=== PATIENT | male | born 1980 | race Caucasian/White ===

== ENCOUNTER 2022-09-01 05:00 | Emergency (ER) | payer BC ==
[2022-09-01] MEDS ORDERED: Famotidine 20 MG/2 ML SDV IVPUSH ONE (05:57)
[2022-09-01] MEDS ORDERED: Sodium Chloride 0.9% 10 ML Syringe FLUSH PRN (05:57)
[2022-09-01] MEDS ORDERED: methylPREDNISolone Sodium Succinate 125 MG/2 ML SDV IVPUSH ONE (05:58)
[2022-09-01] MEDS ORDERED: diphenhydrAMINE 50 MG/ML SDV IVPUSH ONE (05:58)
[2022-09-01 07:48] VITALS: BP 160/94; PULSE 94
== END 2022-09-01 07:49 | disposition home or self-care (01) ==
LOC: JD.ED 05:00
DX: T78.3XXA Angioneurotic edema, initial encounter (principal); I10 Essential (primary) hypertension; E66.9 Obesity, unspecified; Z68.41 Body mass index [BMI] 40.0-44.9, adult; Z87.891 Personal history of nicotine dependence; Z88.1 Allergy status to other antibiotic agents; Z79.899 Other long term (current) drug therapy
CPT/HCPCS: 96374; 96375; 99284; J1200; J2930; J3490; 99283

== ENCOUNTER 2022-12-15 09:54 | Inpatient (IN) | payer BC ==
[2022-12-15] MEDS ORDERED: Sodium Chloride 0.9% 10 ML Syringe FLUSH PRN (10:39)
[2022-12-15] MEDS ORDERED: Sodium Chloride 0.9% 1,000 ML IV ONE ×3 (10:42→18:41)
[2022-12-15 10:50] LABS: BASOPHILS ABSOLUTE AUTO 0.01 K/mm3 (0.01-0.08); BASOPHILS PERCENT AUTO 0.1 % (0.1-1.2); EOSINOPHILS ABSOLUTE AUTO 0.08 K/mm3 (0.04-0.54); EOSINOPHILS PERCENT AUTO 0.6 (0.8-7.0); HEMATOCRIT 45.8 % (40.1-51.0); HEMOGLOBIN 15.9 gm/dl (13.7-17.5); IMMATURE GRAN ABSOLUTE AUTO 0.06 K/mm3 (0.00-0.10); IMMATURE GRAN PERCENT AUTO 0.4 % (<=1.0); LYMPHOCYTES ABSOLUTE AUTO 0.71 K/mm3 (1.32-3.57); LYMPHOCYTES PERCENT AUTO 5.1 % (21.8-53.1); MEAN CORPUSCULAR HEMOGLOBIN 29.9 pg (25.7-32.2); MEAN CORPUSCULAR HGB CONC 34.7 g/dl (32.2-35.5); MEAN CORPUSCULAR VOLUME 86.1 fl (79.0-92.2); MONOCYTES ABSOLUTE AUTO 0.85 K/mm3 (0.30-0.82); MONOCYTES PERCENT AUTO 6.1 % (5.3-12.2); NEUTROPHILS ABSOLUTE AUTO 12.12 K/mm3 (1.78-5.38); NEUTROPHILS PERCENT AUTO 87.7 % (34.0-67.9); PLATELET COUNT,PLT 141 K/mm3 (163-337); RED BLOOD CELL COUNT 5.32 M/mm3 (4.63-6.08); WHITE BLOOD CELL COUNT,WBC 13.83 K/mm3 (4.23-9.07)
[2022-12-15 11:07] LABS: INR 0.95; PROTHROMBIN TIME 10.2 SECONDS (9.7-12.0)
[2022-12-15 11:09] LABS: PTT,PARTIAL THROMBOPLSTIN TIME 23.9 SECONDS (21.7-31.4)
[2022-12-15 11:11] LABS: LACTIC ACID 3.2 mmol/L (0.4-2.0)
[2022-12-15 11:12] LABS: D-DIMER QUANTITATIVE 1.29 mg/L (0.19-0.50)
[2022-12-15 11:16] LABS: A/G RATIO 1.1 (1-2); ALBUMIN 3.8 g/dl (3.4-5.0); ANION GAP 12.8 (5-15); BILIRUBIN TOTAL 0.8 mg/dL (0.2-1.0); CALCIUM 8.9 mg/dL (8.5-10.1); EST CRCL DRUG DOSING (CG) 107.78 mL/min; MAGNESIUM 1.4 mg/dL (1.8-2.4); POTASSIUM,K 3.8 mEq/L (3.5-5.1); PROTEIN TOTAL,TP 7.4 g/dl (6.4-8.2)
[2022-12-15] MEDS ORDERED: Morphine 2 MG/ML SYRINGE IVPUSH ONE (12:10)
[2022-12-15] MEDS ORDERED: HYDROmorphone 1 MG/ML Syringe IVPUSH ONE (12:41)
[2022-12-15] MEDS: Piperacillin/Tazobactam 4.5 GM in Sodium Chloride 0.9% 100 ML IV SCH ×2 (12:47→21:33)
[2022-12-15] MEDS ORDERED: Linezolid 600 MG in Premix Bag 1 BAG IV ONE (13:56)
[2022-12-15] MEDS ORDERED: LORazepam 2 MG/ML SDV IVPUSH ONE (15:37)
[2022-12-15] MEDS ORDERED: Ibuprofen 800 MG Tab PO ONE (15:44)
[2022-12-15] MEDS ORDERED: Ondansetron 4 MG Tab.DIS PO PRN (16:14)
[2022-12-15] MEDS ORDERED: Albuterol/Ipratropium 3.0-0.5 MG/3 ML Neb Soln NEB PRN (16:14)
[2022-12-15] MEDS ORDERED: Ondansetron 4 MG/2 ML SDV IV PRN (16:14)
[2022-12-15] MEDS ORDERED: Magnesium Sulfate/Water 2 GM/50 ML BAG IV ONE (16:14)
[2022-12-15] MEDS ORDERED: Docusate Sodium 100 MG Cap PO PRN (16:14)
[2022-12-15] MEDS ORDERED: Polyethylene Glycol 3350 Powder 17 GM Packet PO PRN (16:14)
[2022-12-15] MEDS: oxyCODONE 5 MG Tab PO PRN ×2 (16:56→21:33)
[2022-12-15] MEDS: cefTRIAXone 1 GM in Sodium Chloride 0.9% 100 ML IV SCH (16:57)
[2022-12-15] MEDS: Sodium Chloride 0.9% 1,000 ML IV SCH (17:54)
[2022-12-15 18:36] LABS: LACTIC ACID 2.3 mmol/L (0.4-2.0)
[2022-12-15] MEDS: Acetaminophen 325 MG Tab PO PRN (19:45)
[2022-12-15] MEDS ORDERED: Famotidine 20 MG Tab PO SCH (21:00)
[2022-12-15] MEDS: Heparin Sodium 5,000 Units/ML Vial SUBCUT SCH (21:33)
[2022-12-15] MEDS ORDERED: oxyCODONE 5 MG Tab PO ONE (23:05)
[2022-12-15 23:55] LABS: APPEARANCE,URINE CLEAR (Clear); BILIRUBIN,URINE NEGATIVE (Negative); COLOR,URINE YELLOW (Yellow); GLUCOSE,URINE NEGATIVE (Negative); KETONES,URINE TRACE (Negative); LEUKOCYTE ESTERASE,URINE NEGATIVE (Negative); NITRITE,URINE NEGATIVE (Negative); OCCULT BLOOD,URINE NEGATIVE (Negative); PROTEIN,URINE TRACE (Negative); UROBILINOGEN,URINE 0.2 (0.2-1.0)
[2022-12-16 00:09] LABS: BACTERIA,URINE FEW /hpf (FEW); EPITHELIAL CELLS,URINE 0-5 /hpf (0-5); MUCUS,URINE MODERATE /hpf (FEW); RBC,URINE 0-5 /hpf (0-5); WBC,URINE 0-5 /hpf (0-5)
[2022-12-16] MEDS: Sodium Chloride 0.9% 1,000 ML IV SCH ×4 (01:46→23:01)
[2022-12-16] MEDS: Linezolid 600 MG in Premix Bag 1 BAG IV SCH ×2 (01:47→20:06)
[2022-12-16] MEDS: Piperacillin/Tazobactam 4.5 GM in Sodium Chloride 0.9% 100 ML IV SCH ×3 (04:35→23:01)
[2022-12-16] MEDS: Heparin Sodium 5,000 Units/ML Vial SUBCUT SCH ×3 (05:12→23:01)
[2022-12-16 05:54] LABS: ANION GAP 13.2 (5-15); CALCIUM 7.8 mg/dL (8.5-10.1); EST CRCL DRUG DOSING (CG) 107.78 mL/min; MAGNESIUM 1.6 mg/dL (1.8-2.4); PHOSPHORUS 3.2 mg/dL (2.6-4.7); POTASSIUM,K 4.2 mEq/L (3.5-5.1)
[2022-12-16 05:56] LABS: BASOPHILS ABSOLUTE AUTO 0.01 K/mm3 (0.01-0.08); BASOPHILS PERCENT AUTO 0.1 % (0.1-1.2); EOSINOPHILS ABSOLUTE AUTO 0.02 K/mm3 (0.04-0.54); EOSINOPHILS PERCENT AUTO 0.1 (0.8-7.0); HEMATOCRIT 38.9 % (40.1-51.0); IMMATURE GRAN ABSOLUTE AUTO 0.05 K/mm3 (0.00-0.10); IMMATURE GRAN PERCENT AUTO 0.3 % (<=1.0); LYMPHOCYTES ABSOLUTE AUTO 1.01 K/mm3 (1.32-3.57); LYMPHOCYTES PERCENT AUTO 6.9 % (21.8-53.1); MEAN CORPUSCULAR HEMOGLOBIN 29.7 pg (25.7-32.2); MEAN CORPUSCULAR HGB CONC 33.9 g/dl (32.2-35.5); MEAN CORPUSCULAR VOLUME 87.6 fl (79.0-92.2); MEAN PLATELET VOLUME 9.4 fl (9.4-12.3); MONOCYTES ABSOLUTE AUTO 0.57 K/mm3 (0.30-0.82); MONOCYTES PERCENT AUTO 3.9 % (5.3-12.2); NEUTROPHILS ABSOLUTE AUTO 12.95 K/mm3 (1.78-5.38); NEUTROPHILS PERCENT AUTO 88.7 % (34.0-67.9); PLATELET COUNT,PLT 125 K/mm3 (163-337); RED BLOOD CELL COUNT 4.44 M/mm3 (4.63-6.08); WHITE BLOOD CELL COUNT,WBC 14.61 K/mm3 (4.23-9.07)
[2022-12-16 06:05] LABS: HEMOGLOBIN 13.2 gm/dl (13.7-17.5)
[2022-12-16] MEDS: Acetaminophen 325 MG Tab PO PRN ×4 (06:43→21:13)
[2022-12-16] MEDS: oxyCODONE 5 MG Tab PO PRN ×3 (07:39→21:14)
[2022-12-16] MEDS ORDERED: Losartan 50 MG Tab PO SCH (09:00)
[2022-12-16] MEDS: FLUoxetine 20 MG Cap PO SCH (09:30)
[2022-12-16] MEDS: buPROPion 150 MG Tab.SR PO SCH (09:31)
[2022-12-16] MEDS: Hydrochlorothiazide 12.5 MG Cap PO SCH (09:31)
[2022-12-16] MEDS: amLODIPine 10 MG Tab PO SCH (09:32)
[2022-12-16] MEDS ORDERED: Magnesium Sulfate/Water 2 GM in Premix Bag 1 BAG IV ONE (13:00)
[2022-12-16] MEDS ORDERED: Magnesium Sulfate (4.06 MEQ/ML) 5 GM/10 ML SDV IV ONE (13:00)
[2022-12-16] MEDS: cefTRIAXone 1 GM in Sodium Chloride 0.9% 100 ML IV SCH (21:30)
[2022-12-17] MEDS: Acetaminophen 325 MG Tab PO PRN ×4 (03:50→21:53)
[2022-12-17] MEDS: oxyCODONE 5 MG Tab PO PRN ×4 (03:51→21:54)
[2022-12-17] MEDS: Piperacillin/Tazobactam 4.5 GM in Sodium Chloride 0.9% 100 ML IV SCH ×3 (03:52→21:51)
[2022-12-17 05:52] LABS: ANION GAP 12.8 (5-15); CALCIUM 8.3 mg/dL (8.5-10.1); EST CRCL DRUG DOSING (CG) 107.78 mL/min; MAGNESIUM 1.8 mg/dL (1.8-2.4); POTASSIUM,K 3.8 mEq/L (3.5-5.1)
[2022-12-17 05:58] LABS: BASOPHILS ABSOLUTE AUTO 0.01 K/mm3 (0.01-0.08); BASOPHILS PERCENT AUTO 0.1 % (0.1-1.2); EOSINOPHILS ABSOLUTE AUTO 0.06 K/mm3 (0.04-0.54); EOSINOPHILS PERCENT AUTO 0.4 (0.8-7.0); HEMATOCRIT 36.1 % (40.1-51.0); HEMOGLOBIN 12.2 gm/dl (13.7-17.5); IMMATURE GRAN ABSOLUTE AUTO 0.03 K/mm3 (0.00-0.10); IMMATURE GRAN PERCENT AUTO 0.2 % (<=1.0); LYMPHOCYTES ABSOLUTE AUTO 1.29 K/mm3 (1.32-3.57); LYMPHOCYTES PERCENT AUTO 9.3 % (21.8-53.1); MEAN CORPUSCULAR HEMOGLOBIN 29.9 pg (25.7-32.2); MEAN CORPUSCULAR HGB CONC 33.8 g/dl (32.2-35.5); MEAN CORPUSCULAR VOLUME 88.5 fl (79.0-92.2); MEAN PLATELET VOLUME 9.5 fl (9.4-12.3); MONOCYTES ABSOLUTE AUTO 0.78 K/mm3 (0.30-0.82); MONOCYTES PERCENT AUTO 5.6 % (5.3-12.2); NEUTROPHILS ABSOLUTE AUTO 11.73 K/mm3 (1.78-5.38); NEUTROPHILS PERCENT AUTO 84.4 % (34.0-67.9); PLATELET COUNT,PLT 133 K/mm3 (163-337); RED BLOOD CELL COUNT 4.08 M/mm3 (4.63-6.08)
[2022-12-17] MEDS: Sodium Chloride 0.9% 1,000 ML IV SCH ×3 (06:14→21:51)
[2022-12-17] MEDS: Heparin Sodium 5,000 Units/ML Vial SUBCUT SCH ×3 (06:14→21:56)
[2022-12-17] MEDS: Hydrochlorothiazide 12.5 MG Cap PO SCH (08:44)
[2022-12-17] MEDS: FLUoxetine 20 MG Cap PO SCH (08:44)
[2022-12-17] MEDS: buPROPion 150 MG Tab.SR PO SCH (08:44)
[2022-12-17] MEDS: amLODIPine 10 MG Tab PO SCH (08:44)
[2022-12-17] MEDS: Linezolid 600 MG in Premix Bag 1 BAG IV SCH ×2 (08:45→20:38)
[2022-12-17] MEDS ORDERED: Iopamidol 612 MG/ML 100 ML Bottle IVPUSH ONE (15:10)
[2022-12-17] MEDS: Iopamidol 612 MG/ML 100 ML Bottle IVPUSH ONE ×2 (15:11)
[2022-12-17 15:53] LABS: APPEARANCE,URINE CLEAR (Clear); BILIRUBIN,URINE NEGATIVE (Negative); COLOR,URINE LIGHT YELLOW (Yellow); GLUCOSE,URINE NEGATIVE (Negative); KETONES,URINE NEGATIVE (Negative); LEUKOCYTE ESTERASE,URINE NEGATIVE (Negative); NITRITE,URINE NEGATIVE (Negative); OCCULT BLOOD,URINE TRACE-INTACT (Negative); PROTEIN,URINE TRACE (Negative); UROBILINOGEN,URINE 0.2 (0.2-1.0)
[2022-12-17 16:07] LABS: BACTERIA,URINE RARE /hpf (FEW); MUCUS,URINE NOT SEEN /hpf (FEW); SQUAMOUS EPITHELIAL CELLS,UR 0-5 /hpf (0-5); WBC,URINE 0-5 /hpf (0-5)
[2022-12-17 16:08] LABS: AMORPHOUS SEDIMENT,URINE FEW /hpf (NOT SEEN)
[2022-12-18] MEDS: Heparin Sodium 5,000 Units/ML Vial SUBCUT SCH ×2 (05:45→12:59)
[2022-12-18] MEDS: Piperacillin/Tazobactam 4.5 GM in Sodium Chloride 0.9% 100 ML IV SCH ×2 (05:45→12:46)
[2022-12-18 05:57] LABS: BASOPHILS ABSOLUTE AUTO 0.01 K/mm3 (0.01-0.08); BASOPHILS PERCENT AUTO 0.1 % (0.1-1.2); EOSINOPHILS ABSOLUTE AUTO 0.11 K/mm3 (0.04-0.54); EOSINOPHILS PERCENT AUTO 0.9 (0.8-7.0); HEMATOCRIT 35.7 % (40.1-51.0); IMMATURE GRAN ABSOLUTE AUTO 0.04 K/mm3 (0.00-0.10); IMMATURE GRAN PERCENT AUTO 0.3 % (<=1.0); LYMPHOCYTES ABSOLUTE AUTO 1.51 K/mm3 (1.32-3.57); LYMPHOCYTES PERCENT AUTO 12.3 % (21.8-53.1); MEAN CORPUSCULAR HEMOGLOBIN 29.7 pg (25.7-32.2); MEAN CORPUSCULAR HGB CONC 33.6 g/dl (32.2-35.5); MEAN CORPUSCULAR VOLUME 88.4 fl (79.0-92.2); MEAN PLATELET VOLUME 9.6 fl (9.4-12.3); MONOCYTES ABSOLUTE AUTO 1.22 K/mm3 (0.30-0.82); NEUTROPHILS ABSOLUTE AUTO 9.36 K/mm3 (1.78-5.38); NEUTROPHILS PERCENT AUTO 76.4 % (34.0-67.9); PLATELET COUNT,PLT 149 K/mm3 (163-337); RED BLOOD CELL COUNT 4.04 M/mm3 (4.63-6.08); WHITE BLOOD CELL COUNT,WBC 12.25 K/mm3 (4.23-9.07)
[2022-12-18 06:00] LABS: ANION GAP 10.9 (5-15); BUN/CREATININE RATIO 6.7 (14-18); CALCIUM 8.7 mg/dL (8.5-10.1); CREATININE 0.9 mg/dL (0.7-1.3); EST CRCL DRUG DOSING (CG) 119.75 mL/min; POTASSIUM,K 3.9 mEq/L (3.5-5.1)
[2022-12-18] MEDS: Sodium Chloride 0.9% 1,000 ML IV SCH (07:59)
[2022-12-18] MEDS: Hydrochlorothiazide 12.5 MG Cap PO SCH (08:01)
[2022-12-18] MEDS: FLUoxetine 20 MG Cap PO SCH (08:02)
[2022-12-18] MEDS: oxyCODONE 5 MG Tab PO PRN ×2 (08:02→14:54)
[2022-12-18] MEDS: Acetaminophen 325 MG Tab PO PRN ×2 (08:02→12:56)
[2022-12-18] MEDS: amLODIPine 10 MG Tab PO SCH (08:02)
[2022-12-18] MEDS: buPROPion 150 MG Tab.SR PO SCH (08:02)
[2022-12-18] MEDS: Linezolid 600 MG in Premix Bag 1 BAG IV SCH (08:05)
[2022-12-18] MEDS ORDERED: Pantoprazole 40 MG Tab.CR PO PRN (11:36)
[2022-12-18 14:35] VITALS: BP 148/63; PULSE 83
[2022-12-19] MEDS ORDERED: buPROPion 150 MG Tab.ER PO SCH (09:00)
== END 2022-12-18 15:10 | DRG 720 ==
LOC: JD.ED 09:54 → JD.MS 15:12
PROVIDERS: ADMIT Hospitalist; ATTEND Hospitalist
DX: A41.9 Sepsis, unspecified organism (principal); J18.9 Pneumonia, unspecified organism; Z68.41 Body mass index [BMI] 40.0-44.9, adult; L03.115 Cellulitis of right lower limb; I10 Essential (primary) hypertension; E66.01 Morbid (severe) obesity due to excess calories; F32.A Depression, unspecified; K21.9 Gastro-esophageal reflux disease without esophagitis; E87.20 Acidosis, unspecified; E83.42 Hypomagnesemia; H54.7 Unspecified visual loss; G47.33 Obstructive sleep apnea (adult) (pediatric)
CPT/HCPCS: 36415; 71045; 71045-26; 73701-26-LT; 73701-LT; 80048; 80053; 81001; 82550; 83605; 83735; 84100; 84484; 85025; 85379; 85610; 85730; 87040; 93005; 93010; 93971-26-LT; 93971-LT; 94660; 94760; 94761; 96361; 96365; 96375; 99222; 99232; 99239; 99285; 99285-25; A9270-GY; J0696; J1170; J1644; J2020; J2060; J2270; J2405; J2543; J3475; J3490; J7030; Q9967

== ENCOUNTER 2023-10-01 15:07 | Emergency (ER) | payer BC ==
[2023-10-01 15:58] LABS: BASOPHILS PERCENT AUTO 0.4 % (0.0-1.0); EOSINOPHILS ABSOLUTE AUTO 0.2 K/mm3 (0.0-0.4); EOSINOPHILS PERCENT AUTO 2.3 % (0.0-6.0); HEMATOCRIT 42.8 % (42.0-52.0); IMMATURE GRAN ABSOLUTE AUTO 0.02 K/mm3 (0.00-0.05); IMMATURE GRAN PERCENT AUTO 0.3 % (0.0-0.4); LYMPHOCYTES ABSOLUTE AUTO 2.4 K/mm3 (1.0-4.8); LYMPHOCYTES PERCENT AUTO 33.3 % (24.0-44.0); MEAN CORPUSCULAR HEMOGLOBIN 30.2 pg (28.0-32.0); MEAN CORPUSCULAR VOLUME 86.3 fl (83.0-99.0); MONOCYTES ABSOLUTE AUTO 0.8 K/mm3 (0.0-0.8); MONOCYTES PERCENT AUTO 10.8 % (0.0-8.0); NEUTROPHILS ABSOLUTE AUTO 3.9 K/mm3 (1.8-7.7); NEUTROPHILS PERCENT AUTO 52.9 % (41.0-71.0); PLATELET COUNT,PLT 154 K/mm3 (150-400); RED BLOOD CELL COUNT 4.96 M/mm3 (4.52-5.90)
[2023-10-01] MEDS: Alum Hydrox/Mag Hydrox/Simeth 30 ML, Lidocaine 2% 15 ML PO ONE (16:10)
[2023-10-01 16:16] LABS: MAGNESIUM 1.9 mg/dL (1.8-2.4)
[2023-10-01 16:24] LABS: A/G RATIO 1.1 (1-2); ALBUMIN 3.8 g/dl (3.4-5.0); ANION GAP 16.2 (5-15); BILIRUBIN TOTAL 0.4 mg/dL (0.2-1.0); CALCIUM 8.9 mg/dL (8.5-10.1); EST CRCL DRUG DOSING (CG) 106.7 mL/min; POTASSIUM,K 4.2 mEq/L (3.5-5.1); PROTEIN TOTAL,TP 7.4 g/dl (6.4-8.2)
[2023-10-01] MEDS ORDERED: Sodium Chloride 0.9% 10 ML Syringe FLUSH PRN (16:41)
[2023-10-01] MEDS: Iopamidol 755 Mg/ML 100 ML Bottle IVPUSH ONE (16:44)
[2023-10-01] MEDS ORDERED: Sodium Chloride 0.9% 100 ML IV SCH (16:45)
[2023-10-01] MEDS: Famotidine 20 MG Tab PO ONE (16:52)
[2023-10-01 17:20] LABS: APPEARANCE,URINE CLEAR (Clear); BILIRUBIN,URINE NEGATIVE (Negative); COLOR,URINE YELLOW (Yellow); GLUCOSE,URINE NEGATIVE (Negative); KETONES,URINE NEGATIVE (Negative); LEUKOCYTE ESTERASE,URINE NEGATIVE (Negative); NITRITE,URINE NEGATIVE (Negative); OCCULT BLOOD,URINE NEGATIVE (Negative); PROTEIN,URINE NEGATIVE (Negative); UROBILINOGEN,URINE 0.2 (0.2-1.0)
[2023-10-01 17:26] LABS: BARBITURATE SCREEN,URINE NEGATIVE (CUTOFF=200); BENZODIAZEPINES SCREEN,URINE NEGATIVE (CUTOFF=150); BUPRENORPHINE SCREEN,URINE NEGATIVE (CUTOFF=10); METHADONE SCREEN, URINE NEGATIVE (CUT0FF=200); METHAMPHETAMINES SCREEN, URINE NEGATIVE (CUTOFF=500); OXYCODONE SCREEN,URINE NEGATIVE (CUT0FF=100); THC SCREEN,URINE 20 NG/ML PRESUMPTIVE POSITIVE (CUTOFF=50)
[2023-10-01 17:43] LABS: AMPHETAMINES SCREEN, URINE NEGATIVE (CUTOFF=500)
[2023-10-01 19:14] VITALS: BP 116/86; PULSE 98
== END 2023-10-01 19:14 | disposition home or self-care (01) ==
LOC: JD.ED 15:07
DX: R07.9 Chest pain, unspecified (principal); I10 Essential (primary) hypertension; Z88.1 Allergy status to other antibiotic agents; Z88.8 Allergy status to other drugs, medicaments and biological substances; Z79.899 Other long term (current) drug therapy
CPT/HCPCS: 36415; 71046; 71275; 80053; 80306; 80307; 81003; 83735; 84484; 85025; 85379; 93005; 99285; A9270; Q9967; 93010; 99284

== ENCOUNTER 2023-11-28 08:06 | Emergency (ER) | payer BC ==
[2023-11-28] MEDS: Sulfamethoxazole/Trimethoprim 800-160 MG Tab PO ONE (08:50)
[2023-11-28 10:26] VITALS: BP 148/78; PULSE 78
== END 2023-11-28 09:10 | disposition home or self-care (01) ==
LOC: JD.ED 08:06
DX: L03.113 Cellulitis of right upper limb (principal); I10 Essential (primary) hypertension; Z79.2 Long term (current) use of antibiotics; Z79.899 Other long term (current) drug therapy; Z88.1 Allergy status to other antibiotic agents; Z88.8 Allergy status to other drugs, medicaments and biological substances
CPT/HCPCS: 99283; A9270

== ENCOUNTER 2024-06-25 15:28 | Emergency (ER) | payer BC ==
[2024-06-25] MEDS ORDERED: Sodium Chloride 0.9% 10 ML Syringe FLUSH PRN (15:51)
[2024-06-25] MEDS: Albuterol/Ipratropium 3.0-0.5 MG/3 ML Neb Soln NEB ONE ×2 (16:06→16:16)
[2024-06-25 16:17] LABS: BASOPHILS ABSOLUTE AUTO 0.1 K/mm3 (0.0-0.2); BASOPHILS PERCENT AUTO 0.6 % (0.0-1.0); EOSINOPHILS ABSOLUTE AUTO 0.9 K/mm3 (0.0-0.4); EOSINOPHILS PERCENT AUTO 10.1 % (0.0-6.0); HEMATOCRIT 45.3 % (42.0-52.0); IMMATURE GRAN ABSOLUTE AUTO 0.03 K/mm3 (0.00-0.05); IMMATURE GRAN PERCENT AUTO 0.3 % (0.0-0.4); LYMPHOCYTES ABSOLUTE AUTO 2.4 K/mm3 (1.0-4.8); LYMPHOCYTES PERCENT AUTO 26.8 % (24.0-44.0); MEAN CORPUSCULAR HEMOGLOBIN 30.5 pg (28.0-32.0); MEAN CORPUSCULAR HGB CONC 35.3 g/dl (32.0-36.0); MEAN CORPUSCULAR VOLUME 86.3 fl (83.0-99.0); MEAN PLATELET VOLUME 8.8 fl (9.4-12.4); MONOCYTES ABSOLUTE AUTO 1.2 K/mm3 (0.0-0.8); MONOCYTES PERCENT AUTO 13.6 % (0.0-8.0); NEUTROPHILS ABSOLUTE AUTO 4.4 K/mm3 (1.8-7.7); NEUTROPHILS PERCENT AUTO 48.6 % (41.0-71.0); PLATELET COUNT,PLT 191 K/mm3 (150-400); RED BLOOD CELL COUNT 5.25 M/mm3 (4.52-5.90); WHITE BLOOD CELL COUNT,WBC 8.95 K/mm3 (3.9-11.3)
[2024-06-25] MEDS: Sodium Chloride 0.9% 1,000 ML IV ONE (16:34)
[2024-06-25 16:50] LABS: ALBUMIN 3.5 g/dl (3.4-5.0); ANION GAP 14.1 (5-15); BILIRUBIN TOTAL 0.6 mg/dL (0.2-1.0); BUN/CREATININE RATIO 14.4 (14-18); CALCIUM 9.2 mg/dL (8.5-10.1); CREATININE 0.9 mg/dL (0.7-1.3); EST CRCL DRUG DOSING (CG) 118.56 mL/min; MAGNESIUM 1.9 mg/dL (1.8-2.4); POTASSIUM,K 4.1 mEq/L (3.5-5.1); PROTEIN TOTAL,TP 7.2 g/dl (6.4-8.2)
[2024-06-25] MEDS: Albuterol 0.083% 2.5 MG/3 ML Neb Soln NEB ONE (18:03)
[2024-06-25] MEDS ORDERED: Albuterol 6.7 GM Inhaler INH PRN (18:24)
[2024-06-25] MEDS: Albuterol 6.7 GM Inhaler INH PRN (18:33)
[2024-06-25] MEDS: methylPREDNISolone Sodium Succinate 125 MG/2 ML SDV IVPUSH ONE (18:55)
[2024-06-25 18:56] VITALS: BP 113/54; PULSE 82
== END 2024-06-25 19:14 | disposition home or self-care (01) ==
LOC: JD.ED 15:28
DX: J06.9 Acute upper respiratory infection, unspecified (principal); I10 Essential (primary) hypertension; Z79.899 Other long term (current) drug therapy; Z88.1 Allergy status to other antibiotic agents; Z88.8 Allergy status to other drugs, medicaments and biological substances
CPT/HCPCS: 36415; 71045; 80053; 83605; 83735; 83880; 84484; 85025; 87040; 87428; 93005; 94640; 96361; 96374; 99285; A9270; J2919; J7030; J7620-GY